=== PATIENT | male | born 1990 | race Caucasian/White ===

== ENCOUNTER 2020-12-07 07:45 | Emergency (ER) | payer MEDICAID ==
[~2020-12-07] VITALS: Ht 172.7 cm; Wt 80.0 kg
[2020-12-07] MEDS ORDERED: ACET-2708 PO (07:56)
[2020-12-07] MEDS ORDERED: ONDANSETRON HCL 4MG/2ML INJ IV STA (08:07)
[2020-12-07] MEDS ORDERED: MORPHINE SULFATE 4 MG/ML CPJ (NOT FOR IM USE) IV STA (08:07)
[2020-12-07 08:54] LABS: BASOPHILS % 0.5 % (0.0-2.0); CHLORIDE 111 mEq/L (98-107); EOSINOPHILS % 1.1 % (0.0-5.0); HEMATOCRIT. 46.4 % (42.0-52.0); HEMOGLOBIN. 15.4 g/dL (14.0-18.0); LYMPHOCYTES % 30.8 % (20.0-50.0); MEAN CORPUSCULAR HEMOGLOBIN 28.7 pg (28.0-32.0); MEAN CORPUSCULAR VOLUME 86.8 fL (80.0-94.0); MEAN PLATELET VOLUME 9.9 fl (7.4-10.4); MONOCYTES % 6.5 % (2.0-8.0); NEUTROPHILS % 61.1 % (40.0-76.0); PLATELET 243 x1000/uL (130-400); RED BLOOD CELL COUNT 5.35 mill/uL (4.7-6.1); RED CELL DISTRIBUTION WIDTH 13.9 % (11.6-14.6)
[2020-12-07 09:01] LABS: KETONES URINE TRACE (NEGATIVE); LEUKOCYTE ESTERASE URINE 1+ (NEGATIVE); NITRITE URINE NEGATIVE (NEGATIVE); OCCULT BLOOD URINE 3+ (NEGATIVE); PH URINE 5.5 (4.5-8.0); PROTEIN URINE 2+ (NEGATIVE)
[2020-12-07 09:02] LABS: CLARITY URINE SL HAZY (CLEAR); COLOR URINE ORANGE (YELLOW)
[2020-12-07] MEDS ORDERED: MORPHINE SULFATE 4 MG/ML CPJ (NOT FOR IM USE) IV ONE (09:15)
[2020-12-07 09:23] LABS: INR 1.1; PROTHROMBIN TIME 11.5 sec (9.6-11.0)
[2020-12-07] MEDS ORDERED: OXYC-100 PO ×3 (10:41→12:32)
[2020-12-07 11:12] VITALS: BP 111/65
== END 2020-12-07 11:33 | disposition home or self-care (01) ==
LOC: ER 07:45
DX: N20.0 Calculus of kidney (principal); Z90.49 Acquired absence of other specified parts of digestive tract; Z98.890 Other specified postprocedural states; Z79.899 Other long term (current) drug therapy
CPT/HCPCS: 36415; 74176; 80053; 81003; 83690; 85025; 85610; 96374; 96375; 96376; 99284; J2270; J2405; Z7610

== ENCOUNTER → 2023-11-22 | Outpatient (CLI) | payer BC ==
[~2023-11-22] MED LIST: ACET-2708 PO; OXYC-100 PO
[2023-11-22 08:07] LABS: CLARITY URINE CLEAR (CLEAR); COLOR URINE YELLOW (YELLOW); GLUCOSE URINE NEGATIVE (NEGATIVE); KETONES URINE NEGATIVE (NEGATIVE); LEUKOCYTE ESTERASE URINE NEGATIVE (NEGATIVE); NITRITE URINE NEGATIVE (NEGATIVE); OCCULT BLOOD URINE NEGATIVE (NEGATIVE); PROTEIN URINE NEGATIVE (NEGATIVE); SPECIFIC GRAVITY URINE 1.031 (1.005-1.030)
[2023-11-22 08:09] LABS: BASOPHILS % 0.7 % (0.0-2.0); EOSINOPHILS % 1.9 % (0.0-5.0); HEMATOCRIT. 42.4 % (42.0-52.0); HEMOGLOBIN. 13.9 g/dL (14.0-18.0); LYMPHOCYTES % 36.9 % (20.0-50.0); MEAN CORPUSCULAR HGB CONC 32.8 g/dL (31.0-37.0); MEAN CORPUSCULAR VOLUME 88.6 fL (80.0-94.0); MEAN PLATELET VOLUME 8.9 fl (7.4-10.4); MONOCYTES % 8.4 % (2.0-8.0); NEUTROPHILS % 52.1 % (40.0-76.0); PLATELET 209 x1000/uL (130-400); RED BLOOD CELL COUNT 4.79 mill/uL (4.7-6.1); RED CELL DISTRIBUTION WIDTH 13.5 % (11.6-14.6)
[2023-11-22 08:13] LABS: CHLORIDE 106 mEq/L (98-107); POTASSIUM 3.7 mEq/L (3.5-5.1); SODIUM 140 mEq/L (136-145)
[2023-11-22 08:14] LABS: CALCIUM 9.5 mg/dL (8.7-10.4); CARBON DIOXIDE 27 mEq/L (21-32)
[2023-11-22 08:19] LABS: GLUCOSE 87 mg/dL (70-105); TRIGLYCERIDE 174 mg/dL (0-150); UREA NITROGEN BLOOD 21 mg/dL (9-23)
[2023-11-22 08:20] LABS: LDL CHOLESTEROL 102 mg/dL (5-100)
[2023-11-22 08:21] LABS: ALANINE AMINOTRANSFERASE 18 IU/L (10-49); ALBUMIN 4.6 g/dL (3.2-4.8); ASPARTATE AMINOTRANSFERASE 18 IU/L (<34); CHOLESTEROL 162 mg/dL (<200); HDL CHOLESTEROL 50 mg/dL (>55)
[2023-11-22 08:22] LABS: BILIRUBIN TOTAL 0.5 mg/dL (0.1-1.0); PROTEIN TOTAL 6.7 g/dL (6.0-8.3)
== END | disposition home or self-care (01) ==
LOC: LAB 07:38
PROVIDERS: ATTEND Internal Medicine
DX: Z13.220 Encounter for screening for lipoid disorders (principal); Z13.1 Encounter for screening for diabetes mellitus; Z00.00 Encounter for general adult medical examination without abnormal findings
CPT/HCPCS: 36415; 80053; 80061; 81003; 83036; 84443; 85025

== ENCOUNTER → 2024-11-20 | Outpatient (CLI) | payer BC ==
[2024-11-20 14:05] LABS: BASOPHILS % 0.4 % (0.0-2.0); EOSINOPHILS % 1.7 % (0.0-5.0); HEMATOCRIT. 43.4 % (42.0-52.0); HEMOGLOBIN. 14.5 g/dL (14.0-18.0); LYMPHOCYTES % 31.7 % (20.0-50.0); MEAN PLATELET VOLUME 8.8 fl (7.4-10.4); MONOCYTES % 7.4 % (2.0-8.0); NEUTROPHILS % 58.8 % (40.0-76.0); PLATELET 213 x1000/uL (130-400); RED BLOOD CELL COUNT 5.06 mill/uL (4.7-6.1); RED CELL DISTRIBUTION WIDTH 13.3 % (11.6-14.6)
[2024-11-20 14:23] LABS: CREATININE 1.0 mg/dL (0.6-1.3)
[2024-11-20 14:24] LABS: TRIGLYCERIDE 79 mg/dL (0-150); UREA NITROGEN BLOOD 13 mg/dL (9-23)
[2024-11-20 14:25] LABS: ASPARTATE AMINOTRANSFERASE 19 IU/L (<34); LDL CHOLESTEROL 137 mg/dL (5-100)
[2024-11-20 14:26] LABS: BILIRUBIN TOTAL 1.3 mg/dL (0.1-1.0); PROTEIN TOTAL 7.3 g/dL (6.0-8.3)
[2024-11-20 14:28] LABS: FOLIC ACID (FOLATE) SERUM 17.76 ng/mL (>5.38)
[2024-11-20 14:29] LABS: VITAMIN B12 SERUM 794 pg/mL (211-911)
== END | disposition home or self-care (01) ==
LOC: LAB 13:28
PROVIDERS: ATTEND Internal Medicine
DX: E78.5 Hyperlipidemia, unspecified (principal); D64.9 Anemia, unspecified; Z13.1 Encounter for screening for diabetes mellitus
CPT/HCPCS: 36415; 80053; 80061; 82607; 82728; 82746; 83036; 83540; 83550; 85025